=== PATIENT | female | born 1970 | race African-American/Black ===

== ENCOUNTER 2016-10-23 10:57 | Inpatient (IN) | payer MEDICAID ==
[~2016-10-23] VITALS: Ht 162.6 cm; Wt 83.9 kg
[2016-10-23 12:10] LABS: CLARITY URINE CLEAR (CLEAR); COLOR URINE YELLOW (YELLOW); GLUCOSE URINE NEGATIVE (NEGATIVE); KETONES URINE NEGATIVE (NEGATIVE); LEUKOCYTE ESTERASE URINE TRACE (NEGATIVE); NITRITE URINE NEGATIVE (NEGATIVE); OCCULT BLOOD URINE 1+ (NEGATIVE); PH URINE 5.5 (4.5-8.0); PROTEIN URINE NEGATIVE (NEGATIVE); SPECIFIC GRAVITY URINE 1.018 (1.005-1.030); UROBILINOGEN URINE 0.2 E.U./dL (0.2-1.0)
[2016-10-23 12:29] LABS: HEMATOCRIT. 32.3 % (36.0-48.0); HEMOGLOBIN. 10.6 g/dL (12.0-16.0); MEAN CORPUSCULAR HEMOGLOBIN 28.6 pg (28.0-32.0); MEAN CORPUSCULAR HGB CONC 32.9 g/dL (31.0-37.0); MEAN CORPUSCULAR VOLUME 87.1 fL (81.0-99.0); PLATELET 339 x1000/uL (130-400); RED BLOOD CELL COUNT 3.71 mill/uL (4.2-5.4); RED CELL DISTRIBUTION WIDTH 15.4 % (11.6-14.6); WHITE BLOOD COUNT 4.7 x1000/uL (4.5-11.0)
[2016-10-23 12:34] LABS: BACTERIA URINE TRACE; RBC URINE 0-2 /hpf (0-2); SQUAMOUS EPITHELIAL CELL URINE 1+ /lpf (RARE/1+); WBC URINE 0-2 /hpf (0-2)
[2016-10-23 12:35] LABS: CHLORIDE 105 mEq/L (98-107); INDEX HEMOLYSI 1 (1-3); INDEX ICTERIC 1 (1-4); INDEX LIPEMIC 1 (1-3)
[2016-10-23 12:38] LABS: PROTHROMBIN TIME 10.1 sec
[2016-10-23 12:43] LABS: ALANINE AMINOTRANSFERASE 22 IU/L (13-61); ALBUMIN 3.3 g/dL (3.4-5.0); ANION GAP 13; CALCIUM 8.5 mg/dL (8.5-10.1); CARBON DIOXIDE 27 mEq/L (21-32); UREA NITROGEN BLOOD 19 mg/dL (7-21); eGFR 58 mL/min (>60)
[2016-10-23 12:46] LABS: DIFFERENTIAL COMMENT 1
[2016-10-23 13:13] LABS: PLATELET ESTIMATE NORMAL
[2016-10-23] MEDS ORDERED: ACETAMINOPHEN 325MG TABLET PO PRN (15:45)
[2016-10-23] MEDS ORDERED: MAGNESIUM/ALUMINUM HYDROXIDE/SIMETHICONE 30ML UDC PO PRN (15:45)
[2016-10-23] MEDS ORDERED: ONDANSETRON HCL 4MG/2ML VIAL IV PRN (15:45)
[2016-10-23] MEDS ORDERED: IPRATROPIUM/ALBUTEROL 0.5-3(2.5)MG/3ML NEB INH PRN (15:45)
[2016-10-23] MEDS ORDERED: CLONIDINE 0.1MG TABLET PO PRN (15:45)
[2016-10-23] MEDS ORDERED: DIPHENHYDRAMINE 50MG/ML VIAL IV PRN (15:45)
[2016-10-23] MEDS ORDERED: LORAZEPAM 2MG/ML CPJ IV PRN (15:45)
[2016-10-23] MEDS ORDERED: KETOROLAC 15MG/ML VIAL IV PRN (15:48)
[2016-10-23] MEDS: PANTOPRAZOLE SODIUM 40 MG/VIAL IV SCH (15:50)
[2016-10-23] MEDS ORDERED: NA PHOS,M-B/NA PHOS,DI-BA ENEMA 118ML PR PRN (16:00)
[2016-10-23 16:27] LABS: *AMPHETAMINES SCREEN URINE NEGATIVE (NEGATIVE); *BARBITURATES SCREEN URINE NEGATIVE (NEGATIVE); *BENZODIAZEPINES SCREEN URINE NEGATIVE (NEGATIVE); ECSTASY MDMA SCREEN URINE NEGATIVE (NEGATIVE); METHADONE URINE SCREEN NEGATIVE (NEGATIVE); OPIATES URINE SCREEN NEGATIVE (NEGATIVE); PHENCYCLIDINE URINE SCREEN NEGATIVE (NEGATIVE)
[2016-10-23 16:29] LABS: *COCAINE SCREEN URINE PRESUMTIVE POSITIVE (NEGATIVE); CANNABINOID URINE SCREEN PRESUMTIVE POSITIVE (NEGATIVE)
[2016-10-23 16:42] LABS: AMMONIA < 10 uMol/L (<32); INDEX HEMOLYSI 1 (1-3)
[2016-10-23 17:00] VITALS: BP 139/79
[2016-10-23 18:47] LABS: HEPATITIS B SURFACE ANTIGEN NEGATIVE
[2016-10-23] MEDS ORDERED: MVI, ADULT NO.1 10 ML, FOLIC ACID 1 MG, THIAMINE HCL 100 MG in SODIUM CHLORIDE 0.9% 1,0... IV SCH ×4 (19:00)
[2016-10-23 19:15] LABS: HEPATITIS B CORE AB IGM NEGATIVE; HEPATITIS C VIR.AB 0.11 INDEXVAL (0.00-0.80)
[2016-10-23 19:17] LABS: HEPATITIS A AB IGM NEGATIVE (NEGATIVE)
[2016-10-23 20:00] VITALS: BP 102/79
[2016-10-23] MEDS ORDERED: ZOLPIDEM TARTRATE 5MG TABLET PO PRN (20:00)
[2016-10-23] MEDS: METOPROLOL TARTRATE 25MG TABLET PO SCH (20:52)
[2016-10-23 22:43] LABS: HEMATOCRIT 33.3 % (36.0-48.0); MEAN CORPUSCULAR HEMOGLOBIN 28.6 pg (28.0-32.0); MEAN CORPUSCULAR HGB CONC 32.9 g/dL (31.0-37.0); PLATELET 340 x1000/uL (130-400); RED BLOOD CELL COUNT 3.83 mill/uL (4.2-5.4); RED CELL DISTRIBUTION WIDTH 15.3 % (11.6-14.6); WHITE BLOOD COUNT 3.6 x1000/uL (4.5-11.0)
[2016-10-24] VITALS: BP 109/65
[2016-10-24 04:00] VITALS: BP 114/84
[2016-10-24 06:38] LABS: HEMOGLOBIN 10.8 g/dL (12.0-16.0); MEAN CORPUSCULAR HEMOGLOBIN 28.4 pg (28.0-32.0); MEAN CORPUSCULAR HGB CONC 32.7 g/dL (31.0-37.0); PLATELET 338 x1000/uL (130-400); RED CELL DISTRIBUTION WIDTH 15.8 % (11.6-14.6); WHITE BLOOD COUNT 4.6 x1000/uL (4.5-11.0)
[2016-10-24 07:44] VITALS: BP 118/84
[2016-10-24] MEDS: PANTOPRAZOLE SODIUM 40 MG/VIAL IV SCH (08:03)
[2016-10-24] MEDS: METOPROLOL TARTRATE 25MG TABLET PO SCH (08:04)
[2016-10-24] MEDS ORDERED: PANTOPRAZOLE SODIUM 40 MG/VIAL IV SCH (09:00)
[2016-10-24 11:29] VITALS: BP 118/84
[2016-10-24 12:00] VITALS: BP 119/89
== END 2016-10-24 12:40 | disposition home or self-care (01) | DRG 253 ==
LOC: ER 12:40 → 8WST 14:26
PROVIDERS: ADMIT Internal Medicine; ATTEND Internal Medicine
DX: K92.2 Gastrointestinal hemorrhage, unspecified (principal); E44.1 Mild protein-calorie malnutrition; D64.9 Anemia, unspecified; D72.821 Monocytosis (symptomatic); F10.10 Alcohol abuse, uncomplicated; F14.10 Cocaine abuse, uncomplicated; F17.210 Nicotine dependence, cigarettes, uncomplicated; K64.9 Unspecified hemorrhoids; F12.90 Cannabis use, unspecified, uncomplicated; Z68.31 Body mass index [BMI] 31.0-31.9, adult
CPT/HCPCS: 36415; 71010; 76705; 80053; 80305; 81001; 81025; 82140; 83036; 85025; 85027; 85610; 86705; 86709; 86803; 87086; 87186; 87340; 93005; 96365; 96367; 99285; C9113; G0482; J3411; J3490; J7030

== ENCOUNTER 2016-10-27 15:40 | Emergency (ER) | payer MEDICAID ==
[~2016-10-27] VITALS: Ht 162.6 cm; Wt 95.0 kg
[2016-10-27 16:58] VITALS: BP 137/90
== END 2016-10-27 23:00 | disposition left against medical advice (07) ==
LOC: ER 22:47
DX: Z53.21 Procedure and treatment not carried out due to patient leaving prior to being seen by health care provider (principal)